=== PATIENT | male | born 1980 | race Caucasian/White ===

== ENCOUNTER 2021-06-25 10:09 | Emergency (ER) | payer MEDICAID ==
[~2021-06-25] VITALS: Ht 182.9 cm; Wt 108.5 kg
[2021-06-25 10:17] VITALS: BP 135/92
[2021-06-25] MEDS ORDERED: LEVO500T90 PO (11:39)
== END 2021-06-25 12:01 | disposition home or self-care (01) ==
LOC: ER 10:10
DX: N45.3 Epididymo-orchitis (principal); N43.2 Other hydrocele; Z79.2 Long term (current) use of antibiotics
CPT/HCPCS: 76870; 93976; 99284